=== PATIENT | male | born 1935 | race Caucasian/White ===

== ENCOUNTER 2018-08-21 16:56 | Inpatient (IN) | payer OTHER ==
[~2018-08-21] VITALS: Ht 162.6 cm; Wt 136.1 kg
[2018-08-21] MEDS ORDERED: ELIQUIS5 MG (17:17)
[2018-08-21] MEDS ORDERED: ALBUTEROL0.63 MG/3 (17:19)
[2018-08-21] MEDS ORDERED: BUDESONIDE0.25 MG/2 (17:19)
[2018-08-21] MEDS ORDERED: CARDIZEM CD240 MG (17:19)
[2018-09-05] MEDS ORDERED: XOPENEX0.63 MG/3 IH (09:32)
[2018-09-05] MEDS ORDERED: ELIQUIS2.5 MG PO (09:32)
[2018-09-05] MEDS ORDERED: AMIODARONE HCL200 MG PO (09:32)
[2018-09-05] MEDS ORDERED: LIPITOR40 MG PO (09:32)
[2018-09-05] MEDS ORDERED: SPIRONOLACTONE25 MG PO (09:33)
[2018-09-05] MEDS ORDERED: LOPRESSOR25 MG PO (09:33)
[2018-09-05] MEDS ORDERED: BUMETANIDE1 MG PO (09:33)
[2018-09-05] MEDS ORDERED: SERTRALINE HCL25 MG PO (09:33)
== END 2018-09-05 09:58 | disposition home or self-care (01) | DRG 190 ==
LOC: ER 16:56 → MEDJ 19:55
PROVIDERS: ADMIT Internal Medicine
PROC: 4A033R1 Measurement of Arterial Saturation, Peripheral, Percutaneous Approach (ICD-10-PCS; principal; 2018-08-21)
PROC: 3E0F7GC Introduction of Other Therapeutic Substance into Respiratory Tract, Via Natural or Artificial Opening (ICD-10-PCS; 2018-08-21)
PROC: 4A12X4Z Monitoring of Cardiac Electrical Activity, External Approach (ICD-10-PCS; 2018-08-21)
PROC: B246ZZZ Ultrasonography of Right and Left Heart (ICD-10-PCS; 2018-08-21)
PROC: BW28ZZZ Computerized Tomography (CT Scan) of Head (ICD-10-PCS; 2018-08-27)
DX: J44.1 Chronic obstructive pulmonary disease with (acute) exacerbation (principal); I50.23 Acute on chronic systolic (congestive) heart failure; L03.116 Cellulitis of left lower limb; I48.1 Persistent atrial fibrillation; J18.2 Hypostatic pneumonia, unspecified organism; I30.8 Other forms of acute pericarditis; I96 Gangrene, not elsewhere classified; E87.1 Hypo-osmolality and hyponatremia; N17.8 Other acute kidney failure; L03.115 Cellulitis of right lower limb; I11.0 Hypertensive heart disease with heart failure; Z79.01 Long term (current) use of anticoagulants; E87.6 Hypokalemia; N40.0 Benign prostatic hyperplasia without lower urinary tract symptoms; R31.0 Gross hematuria; E66.09 Other obesity due to excess calories; I08.0 Rheumatic disorders of both mitral and aortic valves; L89.892 Pressure ulcer of other site, stage 2; R09.02 Hypoxemia; E88.09 Other disorders of plasma-protein metabolism, not elsewhere classified; B96.89 Other specified bacterial agents as the cause of diseases classified elsewhere; I83.018 Varicose veins of right lower extremity with ulcer other part of lower leg; R31.29 Other microscopic hematuria; F32.9 Major depressive disorder, single episode, unspecified; F41.8 Other specified anxiety disorders